=== PATIENT | male | born 2005 | race Caucasian/White ===

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

== ENCOUNTER 2023-02-05 22:55 | Emergency (ER) | payer OTHER ==
[~2023-02-05] VITALS: Ht 185.4 cm; Wt 70.3 kg
[2023-02-06] MEDS ORDERED: ONDANSETRON4 MG SL (00:11)
== END 2023-02-06 02:00 | disposition home or self-care (01) ==
LOC: ED 22:55
DX: B34.9 Viral infection, unspecified (principal); Z88.0 Allergy status to penicillin; Z88.8 Allergy status to other drugs, medicaments and biological substances; Z20.822 Contact with and (suspected) exposure to COVID-19

== ENCOUNTER 2023-04-19 00:32 | Emergency (ER) | payer OTHER ==
[~2023-04-19] VITALS: Ht 185.4 cm; Wt 61.2 kg
[~2023-04-19 00:32] MED LIST changes: +ONDANSETRON4 MG SL
== END 2023-04-19 01:40 | disposition home or self-care (01) ==
LOC: ED 00:32
DX: S89.92XA Unspecified injury of left lower leg, initial encounter (principal); Z88.0 Allergy status to penicillin; Z88.8 Allergy status to other drugs, medicaments and biological substances; X50.1XXA Overexertion from prolonged static or awkward postures, initial encounter; Y93.89 Activity, other specified; Y92.89 Other specified places as the place of occurrence of the external cause; Y99.8 Other external cause status

== ENCOUNTER 2024-05-20 22:53 | Emergency (ER) | payer OTHER ==
[~2024-05-20] VITALS: Ht 187.9 cm; Wt 72.6 kg
[2024-05-20 23:46] LABS: BILIRUBIN Negative (Negative); BLOOD Negative (Negative); CLARITY Cloudy (Clear); COLOR Yellow (Yellow); GLUCOSE Negative (Negative); KETONE Trace (Negative); LEUKO ESTERASE 1+ (Negative); NITRITE Negative (Negative); SPECIFIC GRAVITY 1.025 (1.001-1.030)
[2024-05-21 00:05] LABS: WBC 16-20 wbc/hpf (0-5)
== END 2024-05-21 00:46 | disposition home or self-care (01) ==
LOC: ED 22:53
PROVIDERS: Internal Medicine
DX: N50.89 Other specified disorders of the male genital organs (principal); Z20.2 Contact with and (suspected) exposure to infections with a predominantly sexual mode of transmission; Z88.0 Allergy status to penicillin; Z88.8 Allergy status to other drugs, medicaments and biological substances